=== PATIENT | female | born 1990 | race Caucasian/White ===

== ENCOUNTER 2016-12-11 07:10 | Emergency (ER) | payer BC ==
--- NOTE | ~2016-12-11 | ER ---
PATIENT'S NAME: JOSH JUÁREZ [facility] AGE: 26 Y [address] ROOM: [place] [address] LOCATION: ED ADMIT DATE: 12/11/2016 ER/Outpatient Report DISCHARGE DATE: 12/11/2016 FAMILY PHYSICIAN: Bernardo Miles MD ATTENDING PHYSICIAN: Ann Marie Blackmon Time of Arrival: 0710 hours. Time of Evaluation: 0727 hours. IDENTIFICATION: A 26-year-old female. CHIEF COMPLAINT: Abdominal and back pain. HISTORY OF PRESENT ILLNESS: The patient is a 26-year-old female, who has right lower quadrant pain and back pain in the flank area. When you ask her to show where it hurts, she says all across her low abdomen. She was seen in the clinic and had blood work and a pelvic exam, was diagnosed with bacterial vaginosis and treated with Flagyl. That was one week ago Tuesday, but she did not fill the antibiotic or pick it up until , and then, she was seen in the clinic yesterday, so she is only taking the Flagyl since . ALLERGIES: NO KNOWN DRUG ALLERGIES. CURRENT MEDICATIONS: 1. Flagyl. 2. Meloxicam. MEDICAL PROBLEMS: Borderline anemia; possible endometriosis; bacterial vaginosis, treated 4 times in the last 1 year. SOCIAL HISTORY: The patient lives here in [place]. She has a significant other and is in a stable monogamous relationship. Tobacco use, denies. Alcohol use, occasional. Occasional marijuana. No alcohol use with the Flagyl. Other drug use, denies. FAMILY HISTORY: No pertinent family history identified. REVIEW OF SYSTEMS: PATIENT'S NAME: JOSH JUÁREZ [facility] AGE: 26 Y [address] ROOM: [place] [id number] LOCATION: [facility] ADMIT DATE: 12/11/2016 ER/Outpatient Report DISCHARGE DATE: 12/11/2016 FAMILY PHYSICIAN: Bernardo Miles MD ATTENDING PHYSICIAN: Ann Marie Blackmon She has had no fever or chills. She has no chest pain. No nausea or vomiting. She has no vaginal discharge, itching, or burning. She has had no history of STDs or PID. Last menstrual period was 2 weeks ago. PHYSICAL EXAMINATION: VITAL SIGNS: Weight 70 kg, blood pressure 124/74, pulse 66, respirations 20, temperature 98.7, sats 98%. GENERAL: A 26-year-old female, in no acute distress. HEENT: Unremarkable. LUNGS: Clear to auscultation. HEART: Regular rate and rhythm. No murmur, rub, or gallop. ABDOMEN: Bowel sounds present. Soft, nondistended, diffusely tender across her lower abdomen. No rebound or guarding. SKIN: [place], warm, and dry. No lesions or rashes noted. NEURO: No focal deficit. EXTREMITIES: She has no lower extremity edema. EMERGENCY DEPARTMENT COURSE: An IV was initiated. Normal saline at 150 mL/h. Fentanyl was given for pain control and Zofran for nausea. LABORATORY DATA AND X-RAYS: Sodium 142, potassium 3.6, chloride 110, CO2 of 24, BUN 13, creatinine 0.8, blood sugar 90. Liver enzymes normal. Amylase 73, lipase 173. UA negative. Urine hCG negative. Hemoglobin 11.4, hematocrit 35.4, platelets 179, white count 5.2 with a normal differential. GC and chlamydia are negative. CT scan with IV but no oral contrast of her abdomen and pelvis shows no acute findings, normal appendix, prominent stool suggesting constipation. IMPRESSION AND PLAN: Abdominal pain. PLAN: Clear liquids as tolerates. Meloxicam for pain as directed. Continue metronidazole. [place] 1 p.o. q.6 hours p.r.n. severe pain, dispensed 10 with 0 refills; Zofran 4 mg q.6 hours p.r.n. nausea, dispensed 6 with 0 refills. Follow up with Dr. Miles in 1 to 3 days. Follow up sooner if any problems or concerns. The patient and her significant other understand and agree, and all questions have been answered. ANN MARIE BLACKMON MD PATIENT'S NAME: JOSH JUÁREZ [facility] AGE: 26 Y [address] ROOM: [place] [id number] LOCATION: [facility] ADMIT DATE: 12/11/2016 ER/Outpatient Report DISCHARGE DATE: 12/11/2016 FAMILY PHYSICIAN: Bernardo Miles MD ATTENDING PHYSICIAN: Ann Marie Blackmon/esperanza /[id number] d: 12/11/16 2034 t: 12/17/16 0756, OUTPATIENT REPORT
[2016-12-11 08:03] LABS: BASOPHIL % 0.6 %; EOSINOPHIL # 0.2 K/uL (0.0-0.5); EOSINOPHIL % 4.6 %; HEMATOCRIT 35.4 % (33.0-46.0); HEMOGLOBIN 11.4 g/dL (11.0-15.0); IMMATURE GRANULOCYTE % 0.2 %; LYMPHOCYTE # 1.7 K/uL (0.8-4.0); LYMPHOCYTE % 33.4 %; MCH 27.4 pg (27.0-34.0); MCHC 32.2 gm/dL (32.0-36.5); MCV 85.1 fl (83.0-98.0); MONOCYTE # 0.3 K/uL (0.0-1.0); MONOCYTE % 4.8 %; MPV 10.6 fl (9.4-12.4); NEUTROPHIL # (ANC) 2.9 K/uL (1.8-7.8); NEUTROPHIL % 56.4 %; NRBC % 0 /100WBC (0-0.00); PLATELET COUNT 179 K/uL (150-450); RBC 4.16 M/uL (3.50-5.00); RDW-CV 14.4 % (11.9-14.6); WBC 5.2 K/uL (4.0-11.0)
[2016-12-11 08:08] LABS: BILIRUBIN URINE NEGATIVE (NEGATIVE); BLOOD URINE NEGATIVE /UL (NEGATIVE); COLOR URINE STRAW (YELLOW); GLUCOSE URINE NEGATIVE (NEGATIVE); KETONE URINE NEGATIVE (NEGATIVE); LEUKOCYTES URINE 25 /UL (NEGATIVE); NITRITE URINE NEGATIVE (NEGATIVE); PH URINE 6.5 (4.0-8.0); PROTEIN URINE NEGATIVE (NEGATIVE); TURBIDITY URINE CLEAR (CLEAR); UROBILINOGEN URINE NORMAL (NORMAL)
[2016-12-11 08:16] LABS: BACTERIA URINE NEGATIVE (NEGATIVE); RBC URINE NEGATIVE #/HPF (NEGATIVE); WBC URINE RARE #/HPF (NEGATIVE)
[2016-12-11 08:19] LABS: ALBUMIN 3.4 gm/dL (3.5-5.0); ALK PHOS 45 IU/L (33-138); ALT 14 IU/L (12-78); ANION GAP 11.6 (10.0-19.0); AST 13 IU/L (10-40); BLOOD UREA NITROGEN 13 mg/dL (6-24); CALCIUM 8.3 mg/dL (8.5-10.5); CHLORIDE 110 mMol/L (96-110); CO2 24 mMol/L (22-32); CREATININE 0.8 mg/dL (0.5-1.1); ESTIMATED GFR (MDRD EQUATION) > 60; POTASSIUM 3.6 mMol/L (3.7-5.1); SODIUM 142 mMol/L (135-145); TOTAL BILIRUBIN 0.5 mg/dL (0.0-1.5); TOTAL PROTEIN 6.8 g/dL (6.0-8.4)
== END 2016-12-11 09:18 | disposition disaster alternative care site (69) ==
LOC: GMED 07:10
PROVIDERS: Family Medicine
PROC: 0T9B70Z Drainage of Bladder with Drainage Device, Via Natural or Artificial Opening (ICD-10-PCS; principal; 2016-12-11)
DX: R10.31 Right lower quadrant pain (principal)
CPT/HCPCS: J2405; J3010; J7030; Q9967